=== PATIENT | female | born 1940 | race Caucasian/White ===

== ENCOUNTER 2020-08-23 05:51 | Day surgery (SDC) | payer OTHER, SELFPAY ==
[~2020-08-23] VITALS: Ht 152.4 cm; Wt 56.7 kg
[2020-08-23] MEDS ORDERED: LIDOCAINE 2% 100 MG/5 ML UJET TP ONE (07:09)
[2020-08-23] MEDS ORDERED: MIDAZOLAM 5 MG/5 ML VIAL ONE (07:09)
[2020-08-23] MEDS ORDERED: fentaNYL citrate 0.05 MG/ML VIAL ONE (07:09)
[2020-08-23] MEDS ORDERED: MIDAZOLAM 2 MG/2 ML VIAL IVP ONE (09:40)
[2020-08-23] MEDS ORDERED: fentaNYL citrate 0.05 MG/ML VIAL IVP ONE (09:40)
== END 2020-08-23 08:33 | disposition home or self-care (01) ==
LOC: MDS 05:51 → MMU 05:52 → MDS 08:33
PROVIDERS: ATTEND Internal Medicine Gastroenterology
DX: K62.5 Hemorrhage of anus and rectum (principal); K57.30 Diverticulosis of large intestine without perforation or abscess without bleeding; K59.00 Constipation, unspecified; Z86.010 Personal history of colon polyps; E78.5 Hyperlipidemia, unspecified; I10 Essential (primary) hypertension; Z79.899 Other long term (current) drug therapy; Z20.828 Contact with and (suspected) exposure to other viral communicable diseases
CPT/HCPCS: 43239; 45378; 88305; 88312; 88313; J2250; J3010; U0003